=== PATIENT | male | born 1980 | race Two or more races ===

== ENCOUNTER 2017-07-30 17:27 | Emergency (ER) | payer SELFPAY ==
[2017-07-30] MEDS: LIDOCAINE WITH 8.4% SOD BICARB 3 ML DISP.SYRIN. INJ ×2 (18:55→18:59)
[2017-07-30] MEDS: DIPHTH,PERTUSS(ACELL),TET TOX 0.5 ML DISP.SYRIN. VAX IM (18:57)
== END 2017-07-30 19:40 | disposition home or self-care (01) ==
LOC: ER 19:40
DX: S81.811A Laceration without foreign body, right lower leg, initial encounter (principal); W29.3XXA Contact with powered garden and outdoor hand tools and machinery, initial encounter; Y93.89 Activity, other specified; Y92.89 Other specified places as the place of occurrence of the external cause; Y99.8 Other external cause status
CPT/HCPCS: 12001; 73590; 90471; 90715; 99284-25

== ENCOUNTER 2020-06-01 17:59 | Emergency (ER) | payer BC, OTHER ==
[~2020-06-01] VITALS: Ht 170.2 cm; Wt 220.0 kg
[~2020-06-01 17:59] MED LIST: CEPH-264 PO
[2020-06-01] MEDS ORDERED: ONDANSETRON ODT 4 MG TAB.RAPDIS. PO ONE (19:15)
[2020-06-01] MEDS ORDERED: ACETAMINOPHEN 500 MG TABLET PO ONE (19:30)
[2020-06-01] MEDS ORDERED: DICYCLOMINE HCL 10 MG CAPSULE PO ONE (19:30)
[2020-06-01] MEDS ORDERED: DEXAMETHASONE SOD PHOS 20 MG/5 ML VIAL. IM ONE (19:30)
[2020-06-01 20:41] VITALS: BP 123/73
[2020-06-01] MEDS ORDERED: DICY20TA3 PO (20:43)
[2020-06-01] MEDS ORDERED: ONDA4TAB12 PO (20:43)
--- NOTE | 2020-06-01 20:43 | PHYS DOC ---
Past Medical History Past Medical History: Asthma (LAURA DAVIS APRN) Past Surgical History: No Surgical History (LAURA DAVIS APRN) Smoking Status: Never Smoker Alcohol Use: None Drug Use: None (LAURA DAVIS APRN) General Adult EDM: Chief Complaint: FLU SYMPTOM HPI: HPI: Patient is a 39 year old male patient with no significant medical history presenting today complaining of generalized abdominal pain rated as mild to moderate and intermittent, nausea, vomiting, diarrhea, headache, subjective fevers, symptoms began last night after having way. Patient is in the ED with the entire family with the same complaint. (LAURA DAVIS APRN) Review of Systems: Review of Systems: Constitutional: Reports fever Eyes: Denies change in visual acuity. [] HENT: Denies nasal congestion or sore throat. [] Respiratory: Denies cough or shortness of breath. [] Cardiovascular: Denies chest pain or edema. [] GI: Reports abdominal pain, nausea vomiting and diarrhea : Denies dysuria. [] Musculoskeletal: Denies back pain or joint pain. [] Integument: Denies rash. [] Neurologic: Reports headache, denies focal weakness or sensory changes. [] Psychiatric: Denies depression or anxiety. [] (LAURA DAVIS APRN) Heart Score: Risk Factors: Risk Factors: DM, Current or recent (<one month) smoker, HTN, HLP, family history of CAD, obesity. Risk Scores: Score 0 - 3: 2.5% MACE over next 6 weeks - Discharge Home Score 4 - 6: 20.3% MACE over next 6 weeks - Admit for Clinical Observation Score 7 - 10: 72.7% MACE over next 6 weeks - Early Invasive Strategies (LAURA DAVIS APRN) Current Medications: Current Medications Medications (Trade) Dose Ordered Sig/Terrence Start Time Stop Time Status Last Admin Dose Admin Acetaminophen (Tylenol) 1,000 mg 1X ONCE 06/01/20 19:30 06/01/20 19:31 DC 06/01/20 19:43 1,000 MG Dexamethasone Sodium Phosphate (Decadron) 10 mg 1X ONCE 06/01/20 19:30 06/01/20 19:31 DC 06/01/20 19:43 10 MG Dicyclomine HCl (Bentyl) 20 mg 1X ONCE 06/01/20 19:30 06/01/20 19:31 DC 06/01/20 19:44 20 MG Ondansetron HCl (Zofran Odt) 4 mg 1X ONCE 06/01/20 19:15 06/01/20 19:17 DC 06/01/20 19:43 4 MG (LAURA DAVIS APRN) Allergies: Allergies: Allergies Coded Allergies Type Severity Reaction Last Updated Verified No Known Drug Allergies 07/30/17 No (LAURA DAVIS APRN) Physical Exam: PE: Constitutional: Well developed, well nourished, no acute distress, non-toxic appearance. [] HENT: Normocephalic, atraumatic, bilateral external ears normal, oropharynx moist, no oral exudates, nose normal. [] Eyes: PERRLA, EOMI, conjunctiva normal, no discharge. [] Neck: Normal range of motion, no tenderness, supple, no stridor. [] Cardiovascular:Heart rate regular rhythm, no murmur [] Lungs & Thorax: Bilateral breath sounds clear to auscultation [] Abdomen: Bowel sounds normal, soft, no tenderness, no masses, no pulsatile masses. [] Skin: Warm, dry, no erythema, no rash. [] Back: No tenderness, no CVA tenderness. [] Extremities: No tenderness, no cyanosis, no clubbing, ROM intact, no edema. [] Neurologic: Alert and oriented X 3, normal motor function, normal sensory function, no focal deficits noted. Cranial nerves II through XII intact Psychologic: Affect normal, judgement normal, mood normal. [] (LAURA DAVIS APRN) Current Patient Data: Vital Signs: Vital Signs Date Time Temp Pulse Resp B/P (MAP) Pulse Ox O2 Delivery O2 Flow Rate FiO2 06/01/20 19:27 100.2 85 20 136/78 (97) 97 Room Air 100.2 (LAURA DAVIS APRN) EKG: EKG: [] (LAURA DAVIS APRN) Radiology/Procedures: Radiology/Procedures: [] (LAURA DAVIS APRN) Course & Med Decision Making: Course & Med Decision Making Pertinent Labs and Imaging studies reviewed. (See chart for details) This is a 39-year-old male patient presenting to the ED today with nausea, vomiting, diarrhea, abdominal pain, headache, symptoms began yesterday. Entire family believes symptoms began after having way and they are all in the ED being evaluated. Patient is running a slight temperature of 100.2. Chest x-ray is negative, tested for COVID-19, results will be called to him next week. Instructed to quarantine himself. Follow-up with PCP next week (LAURA DAVIS APRN) Krish Disclaimer: Dragon Disclaimer: This electronic medical record was generated, in whole or in part, using a voice recognition dictation system. (LAURA DAVIS APRN) Departure Departure Impression: Primary Impression: Person under investigation for COVID-19 Additional Impressions: Nausea and vomiting Qualified Codes: R11.2 - Nausea with vomiting, unspecified Diarrhea Qualified Codes: R19.7 - Diarrhea, unspecified Fever Qualified Codes: R50.9 - Fever, unspecified Disposition: 01 DC HOME SELF CARE/HOMELESS Condition: STABLE Referrals: NO PCP (PCP) follow up with your doctor next week Patient Instructions: Diarrhea, [id number], Fever, Adult, [id number], Nausea and Vomiting, [id number] Additional Instructions: You were evaluated in the emergency room, you were tested for COVID-19. We will call you next week when results are available. In the meantime rest, push fluids, maintain good hand hygiene. Follow-up with your doctor next week Scripts Dicyclomine Hcl (DICYCLOMINE HCL) 20 Mg Tablet 1 TAB PO TID, #30 TAB Prov: LAURA DAVIS APRN 06/01/20 Ondansetron (ONDANSETRON ODT) 4 Mg Tab.rapdis 1 TAB PO PRN Q6-8HRS, #16 TAB Prov: LAURA DAVIS APRN 06/01/20 Attending Signature Attending Signature I have reviewed the PA/HAND SPLITTER's note and plan of care. I was available for consultation as needed during the patient's visit in the emergency department. I agree with the clinical impression, plan, and disposition. (AMIRA PARMAR DO) LAURA DAVIS APRN Jun 01, 2020 20:43 AMIRA PARMAR DO Jun 02, 2020 03:12
[2020-06-01 20:48] LABS: INFLUENZA A PATIENT NEGATIVE (NEGATIVE); INFLUENZA B PATIENT NEGATIVE (NEGATIVE)
--- NOTE | 2020-06-01 21:49 | RAD ---
EXAM: XR CHEST 1V INDICATION: Reason: vomiting 20 / Spl. Instructions: / History: . TECHNIQUE: Single view COMPARISON: None FINDINGS: Mild kyphotic positioning The heart size is normal. The great vessels appear unremarkable. There is no hilar or mediastinal mass. The lungs are clear. There is no pleural effusion or pneumothorax. There are no significant osseous abnormalities. IMPRESSION: No active cardiopulmonary disease. Electronically signed by: Ada uBeno MD (06/01/2020 9:46 PM) [facility] [place]
== END 2020-06-01 20:47 | disposition home or self-care (01) ==
LOC: ER 17:59
DX: R11.2 Nausea with vomiting, unspecified (principal); R19.7 Diarrhea, unspecified; R50.9 Fever, unspecified; Z20.828 Contact with and (suspected) exposure to other viral communicable diseases; J45.909 Unspecified asthma, uncomplicated; R10.84 Generalized abdominal pain; R51.9 Headache, unspecified
CPT/HCPCS: 71045; 87804; 96372; 99284; C9803; J1100; U0003